=== PATIENT | male | born 1960 | race Hispanic/Latino ===

== ENCOUNTER 2018-11-15 13:57 | Emergency (ER) | payer OTHER ==
[2018-11-15] MEDS ORDERED: Lidocaine Viscous Sol 2% 15 ml UD Cup ONE (14:06)
[2018-11-15] MEDS ORDERED: Famotidine 20 MG TAB ONE (14:06)
[2018-11-15] MEDS ORDERED: Mag-Al Plus 1200 MG/1200 MG/120 MG/30 ML UDCUP ONE (14:06)
[2018-11-15 14:20] LABS: #Basophils 0.1 thou/uL (0.0-0.2); #Eosinphils 0.1 thou/uL (0.0-0.7); #Lymphocytes 2.7 thou/uL (1.20-3.40); #Monocytes 0.5 thou/uL (0.11-0.59); #Neutrophils 4.1 thou/uL (1.40-6.50); %Basophils 0.8 % (0.0-1.0); %Eosinophils 1.7 % (0.0-10.0); %Lymphocytes 35.4 % (21.0-51.0); %Monocytes 7.1 % (0.0-10.0); Hemoglobin 14.4 g/dL (14.0-18.0); Mean Corpuscular HGB CONC 33.4 g/dL (32.0-36.0); Mean Corpuscular Hemoglobin 30.5 pg (27.0-31.0); Mean Corpuscular Volume 91.3 fL (78.0-98.0); Mean Platelet Volume 6.1 fL (7.4-10.4); Platelet Count 211 thou/uL (130-400); RBC Distribution Width 12.5 % (11.5-14.5); Red Blood Cell (RBC) Count 4.72 mill/uL (4.70-6.10); White Blood Cell (WBC) Count 7.5 thou/uL (4.8-10.8)
[2018-11-15 14:39] LABS: ALT (SGPT) 21 U/L (8-55); AST (SGOT) 14 U/L (5-34); Albumin 4.1 g/dL (3.5-5.0); Alkaline Phosphatase 101 U/L (40-150); Anion Gap 15 mmol/L (10-20); BUN (Urea Nitrogen) 14 mg/dL (8.4-25.7); Bilirubin, Total 0.5 mg/dL (0.2-1.2); Calc. Creatinine Clearance 0 mL/min (70-130); Carbon Dioxide 25 mmol/L (22-29); Chloride 102 mmol/L (98-107); Estimated GFR-MDRD 82; Globulin 3.2 g/dL (2.4-3.5); Glucose 248 mg/dL (70-105); Lipase 27 U/L (8-78); Potassium 3.8 mmol/L (3.5-5.1); Protein, Total 7.3 g/dL (6.0-8.3); Sodium 138 mmol/L (136-145)
--- NOTE | 2018-11-15 15:05 | RAD ---
2 VIEWS CHEST: Date: 11/15/18 PROVIDED CLINICAL HISTORY: Chest pain. FINDINGS: Cardiac and mediastinal silhouette is within normal limits. Lungs appear clear. No pleural fluid or p neumothorax apparent. IMPRESSION: No evidence for an acute cardiopulmonary process. POS: [facility]
== END 2018-11-15 14:55 | disposition home or self-care (01) ==
LOC: SCSER 13:57
DX: K21.9 Gastro-esophageal reflux disease without esophagitis (principal)
CPT/HCPCS: 36415; 71046; 80053; 83690; 84484; 85025; 93005

== ENCOUNTER 2018-11-22 00:48 | Inpatient (IN) | payer OTHER ==
[2018-11-22] MEDS ORDERED: Lidocaine Viscous Sol 2% 15 ml UD Cup ONE (01:07)
[2018-11-22] MEDS ORDERED: Mag-Al Plus 1200 MG/1200 MG/120 MG/30 ML UDCUP ONE (01:07)
[2018-11-22] MEDS ORDERED: Aspirin Chewable 81 MG TAB ONE (01:07)
[2018-11-22 01:09] LABS: #Basophils 0.1 thou/uL (0.0-0.2); #Eosinphils 0.1 thou/uL (0.0-0.7); #Monocytes 0.4 thou/uL (0.11-0.59); #Neutrophils 3.9 thou/uL (1.40-6.50); %Basophils 1.4 % (0.0-1.0); %Eosinophils 1.7 % (0.0-10.0); %Monocytes 5.8 % (0.0-10.0); %Neutrophils 52.1 % (42.0-75.0); Hemoglobin 14.2 g/dL (14.0-18.0); Mean Corpuscular HGB CONC 32.7 g/dL (32.0-36.0); Mean Corpuscular Volume 91.8 fL (78.0-98.0); Mean Platelet Volume 6.7 fL (7.4-10.4); Platelet Count 216 thou/uL (130-400); RBC Distribution Width 12.6 % (11.5-14.5); Red Blood Cell (RBC) Count 4.73 mill/uL (4.70-6.10); White Blood Cell (WBC) Count 7.6 thou/uL (4.8-10.8)
[2018-11-22 01:24] LABS: ALT (SGPT) 20 U/L (8-55); AST (SGOT) 20 U/L (5-34); Albumin 4.5 g/dL (3.5-5.0); Alkaline Phosphatase 116 U/L (40-150); Anion Gap 15 mmol/L (10-20); BUN (Urea Nitrogen) 15 mg/dL (8.4-25.7); Bilirubin, Total 0.5 mg/dL (0.2-1.2); Calc. Creatinine Clearance 0 mL/min (70-130); Calcium 9.5 mg/dL (7.8-10.44); Carbon Dioxide 25 mmol/L (22-29); Chloride 103 mmol/L (98-107); Estimated GFR-MDRD 90; Globulin 3.5 g/dL (2.4-3.5); Glucose 131 mg/dL (70-105); Lipase 96 U/L (8-78); Potassium 3.9 mmol/L (3.5-5.1); Sodium 139 mmol/L (136-145)
[2018-11-22 01:26] LABS: CKMB 2.3 ng/mL (0-6.6)
[2018-11-22] MEDS ORDERED: Nitroglycerin 2% Ointment 1 INCH/1 GM Packet ONE (01:28)
[2018-11-22] MEDS ORDERED: Morphine 4 MG/ML VIAL ONE (01:45)
[2018-11-22] MEDS ORDERED: Enoxaparin Sodium 40 MG/0.4 ML SYRINGE ONE (01:52)
[2018-11-22] MEDS ORDERED: Enoxaparin Sodium 30 MG/0.3 ML SYRINGE ONE (01:52)
[2018-11-22] MEDS ORDERED: Sodium Chloride 0.9% 1,000 ML IV SCH (03:30)
[2018-11-22 04:33] VITALS: BMI 27.4
[2018-11-22 04:38] LABS: Troponin I 0.298 ng/mL (< 0.028)
[2018-11-22] MEDS ORDERED: Nitroglycerin 2% Ointment 1 INCH/1 GM Packet TOP SCH (06:00)
[2018-11-22 07:55] LABS: Troponin I 0.392 ng/mL (< 0.028)
[2018-11-22] MEDS ORDERED: hydrALAZINE 20 MG/ML VIAL SLOW IVP PRN (08:18)
[2018-11-22] MEDS ORDERED: Zolpidem Tartrate 5 MG TAB PO PRN (08:18)
[2018-11-22] MEDS ORDERED: Acetaminophen 325 MG TAB PO PRN (08:18)
[2018-11-22] MEDS ORDERED: Bisacodyl 10 MG SUPP PR PRN (08:18)
[2018-11-22] MEDS ORDERED: Nitroglycerin 0.4 MG TAB (25 Tab Bottle) SL PRN (08:18)
[2018-11-22] MEDS ORDERED: Sodium Chloride 0.65% Nasal 44 ML BOT EA NARE PRN (08:18)
[2018-11-22] MEDS ORDERED: Artificial Tears 18 DROP/0.9 ML EA EYE PRN (08:18)
[2018-11-22] MEDS ORDERED: Diabetic Tussin 200 MG/10 ML UDCUP PO PRN (08:18)
[2018-11-22] MEDS ORDERED: Ondansetron PF 4 MG/2 ML Vial IVP PRN (08:18)
[2018-11-22] MEDS ORDERED: Senokot S 8.6-50 MG TAB PO PRN (08:18)
[2018-11-22] MEDS ORDERED: HYDROcodone/Acetaminophen 5/325 mg Tablet PO PRN (08:18)
[2018-11-22] MEDS ORDERED: Loperamide HCl 2 MG CAP PO PRN (08:18)
[2018-11-22] MEDS ORDERED: Dextrose 50% Abboject 50 ML SYRINGE SLOW IVP PRN (08:18)
[2018-11-22] MEDS ORDERED: HumaLOG 300 UNITS/3 ML VIAL SC PRN (08:18)
[2018-11-22] MEDS ORDERED: Eucerin (Mineral Oil/Petrolatum,White) 30 gm Jar TOP PRN (08:18)
[2018-11-22] MEDS ORDERED: Dextrose 5% in Water 1,000 ML IV PRN (08:18)
[2018-11-22] MEDS ORDERED: Cepastat Lozenges 1 LOZ PO PRN (08:18)
[2018-11-22] MEDS ORDERED: Loratadine 10 MG TAB PO PRN (08:18)
[2018-11-22] MEDS ORDERED: Calcium Carbonate 500 MG ChewTAB PO PRN (08:18)
[2018-11-22] MEDS ORDERED: Ondansetron ODT 4 MG TAB PO PRN (08:18)
[2018-11-22] MEDS: Famotidine 20 MG TAB PO SCH ×2 (09:39→21:16)
[2018-11-22] MEDS: Metoprolol Tartrate 25 MG TAB PO SCH ×2 (09:39→21:16)
[2018-11-22] MEDS: Aspirin 325 MG TAB PO SCH (09:39)
[2018-11-22] MEDS: Enoxaparin Sodium 80 MG/0.8 ML SYRINGE SC SCH ×2 (09:40→21:15)
--- NOTE | 2018-11-22 09:54 | RAD ---
RADIOGRAPH CHEST 1 VIEW: HISTORY: A 57-year-old female with chest pain. FINDINGS: There are no air space densities, pulmonary edema, pneumothorax, or cardiomegaly. The lateral costop hrenic angles are sharp. IMPRESSION: No acute cardiopulmonary findings. jn [] POS: [facility]
[2018-11-22 11:48] LABS: Critical Call Chem Troponin I RESULT DECREASING
[2018-11-22 12:06] LABS: CKMB 1.9 ng/mL (0-6.6)
--- NOTE | 2018-11-22 12:11 | HP ---
PRIMARY CARE PHYSICIAN: Forrest Mitchell MD. REASON FOR ADMISSION: [id number] NC/unstable angina. HISTORY OF PRESENT ILLNESS: A 57-year-old male, who has underlying history of diabetes, type 2 and dyslipidemia, who initially went to [facility] for evaluation of chest pain. The patient reports that his chest pain started since last Friday. Whenever he was doing exertion, he was getting retrosternal chest pain lasting for about 10 minutes to 30 minutes. It was subsiding with the rest. This was ongoing intermittently for about a week, and it was keep getting worse. Yesterday, the patient returned from work, and he was having substernal chest pain, that was subsided with the rest, but again, pain was started last night around 11:30 p.m., which was substernal in location with radiation to arm, associated with feeling of weakness. He denies any nausea, vomiting, or diaphoresis. Pain lasted for about 45 minutes, and that is why, he went to [facility]. His drove him there. When he reached to the emergency room, his pain was almost subsided. Today, in the emergency room, the patient had electrocardiogram, which was not showing any acute ischemic changes. The patient had routine blood test, which showed elevated troponin. He was given Lovenox 1 mg/kg subcutaneously at [facility], and he was given IV fluid. Subsequently, he was transferred to our hospital for further evaluation and treatment. This morning, the patient was chest pain free. He denies any palpitation, syncope, or dizziness. He denies any orthopnea, PND, or leg swelling, but his history is suggestive of crescendo angina. REVIEW OF SYSTEMS: CONSTITUTIONAL: Negative for weight loss or gain, ability to conduct usual activities. SKIN: Negative for rash, itching. EYES: Negative for double vision, pain. ENT/MOUTH: Negative for nose bleeding, neck stiffness, pain, tenderness. CARDIOVASCULAR: Negative for palpitations, dyspnea on exertion, orthopnea. RESPIRATORY: Negative for shortness of breath, wheezing, cough, hemoptysis, fever or night sweats. GASTROINTESTINAL: Negative for poor appetite, abdominal pain, heartburn, nausea , vomiting, constipation, or diarrhea. GENITOURINARY: Negative for urgency, frequency, dysuria, nocturia. MUSCULOSKELETAL: Negative for pain, swelling. NEUROLOGIC/PSYCHIATRIC: Negative for anxiety, depression. ALLERGY/IMMUNOLOGIC: Negative for skin rash, bleeding tendency. See my HPI for pertinent positives and negatives. All other review of systems reviewed and negative except as mentioned in the HPI. PAST MEDICAL HISTORY: Gastroesophageal reflux disease; diabetes, type 2; and dyslipidemia. PAST SURGICAL HISTORY: Reviewed and negative. PAST PSYCHIATRIC HISTORY: Reviewed and negative. SOCIAL HISTORY: The patient is . He denies any tobacco, alcohol, or illicit drug abuse. FAMILY HISTORY: The patient denies any strong family history of premature coronary artery disease, stroke, or cancer. ALLERGIES: NO KNOWN DRUG ALLERGY. EMERGENCY ROOM COURSE: The patient is given Lovenox 1 mg/kg, IV fluid. CURRENT HOME MEDICATIONS: 1. Glipizide 10 mg p.o. every other day. 2. Maalox p.r.n. 3. Lipitor 80 mg p.o. at bedtime. 4. Pepcid 20 mg daily. 5. Metformin 1000 mg p.o. b.i.d. 6. Omeprazole 20 mg p.o. daily. PHYSICAL EXAMINATION: VITAL SIGNS: On arrival, blood pressure 135/91, pulse 99, respiratory rate 17, temperature 98.7, saturation 95% on room air. Weight 70.7 kg. GENERAL: The patient is currently alert and awake, no obvious acute distress. HEENT: Head; normocephalic and atraumatic. Eyes; pupils are round and reactive to light. Extraocular muscle intact. ENT; oropharynx within normal limits. Moist mucous membrane. No oral lesion. No pharyngeal erythema. No exudate. NECK: Supple. No thyromegaly. No carotid bruit. No jugular venous distention. LUNGS: Clear to auscultation without any rhonchi or rales. CARDIAC: S1 and S2, regular without any murmur. ABDOMEN: Soft. Bowel sounds present. Nontender. Nondistended. No organomegaly. No mass. No suprapubic tenderness. BACK: Unremarkable. No CVA tenderness. EXTREMITIES: Upper extremities; passive movement of all joints is normal. Lower extremities; no edema. Good distal pulsation. No calf tenderness. SKIN: No skin rash. HEMATOLOGICAL: No lymphadenopathy. NEUROLOGIC: Nonfocal examination. The patient moves all four limbs. SIGNIFICANT LABORATORY DATA: EKG is showing normal sinus rhythm without any acute ischemic changes. Chest x-ray based on my review, no acute cardiopulmonary process. CBC; WBC 7.6, hemoglobin 14.2, platelet 216. BMP; sodium 139, potassium 3.9, chloride 103, carbon dioxide 25, BUN 15, creatinine 0.88, glucose 131, calcium 9.5. LFT; AST 20, ALT 20, alkaline phosphatase 116, albumin 4.5. troponin then 0.298, then 0.392. ASSESSMENT AND PLAN: 1. Dps-XQ-yxskavyxa myocardial infarction/unstable angina. This patient's clinical history is consistent with unstable angina, and he has significantly elevated troponin. His EKG is normal. All consistent with itm-MJ-nhbqdvluk myocardial infarction. The patient will be treated medically at this point with nitroglycerin patch q.8 hourly, aspirin 325 mg p.o. daily, Lipitor 80 mg p.o. at bedtime, Lovenox 1 mg/kg subcutaneously twice daily, metoprolol 12.5 mg twice daily, and nitroglycerin p.r.n. basis, and Cardiology will be consulted. Echocardiography will be obtained. We will check lipid profile for risk stratification tomorrow. 2. Diabetes, type 2. We will hold on glipizide and metformin therapy at this point because the patient most likely will need cardiac catheterization. We will continue with insulin as per sliding scale protocol. Diabetic diet will be given. 3. Dyslipidemia. Continue Lipitor 80 mg p.o. at bedtime and check lipid profile tomorrow. 4. Gastroesophageal reflux disease. We will continue Pepcid 20 mg p.o. b.i.d. 5. Deep venous thrombosis prophylaxis. The patient is already on full dose of Lovenox therapy. 6. Gastrointestinal prophylaxis. Pepcid 20 mg p.o. b.i.d. CODE STATUS: The patient is full code. DISPOSITION PLAN: Based on clinical course. We will keep him n.p.o. after midnight because the patient most likely will need cardiac catheterization tomorrow. Plan of care discussed with the patient and his at bedside. Job ID: [id number] SHANA
[2018-11-22] MEDS: Nitroglycerin 2% Ointment 1 INCH/1 GM Packet TOP SCH ×2 (14:49→21:22)
[2018-11-22] MEDS ORDERED: Communication Order-Pharmacy FS SCH (17:30)
--- NOTE | 2018-11-22 18:17 | CON ---
DATE OF CONSULTATION: 11/22/2018 REASON FOR CONSULTATION: Non-STEMI. HISTORY OF PRESENT ILLNESS: Mr. Fischer is a pleasant 57-year-old gentleman, who comes to the hospital for chest pain. He has been having it for the last week. He decided to come in just today as the pain got much worse than before. It lasted about 30 minutes, whereas before, it will only last about 10 minutes, this was only with exertion. He showed up. He is currently chest pain free and he was admitted as his troponins kept climbing. PAST MEDICAL HISTORY: 1. GERD. 2. Type 2 diabetes. 3. Hyperlipidemia. PAST SURGICAL HISTORY: None. SOCIAL HISTORY: No alcohol, tobacco, or drugs. FAMILY HISTORY: No early coronary artery disease. OUTPATIENT MEDICATIONS: 1. Glipizide. 2. Maalox. 3. Lipitor 80 at bedtime. 4. Pepcid. 5. Metformin 1000 mg b.i.d. 6. Omeprazole. ALLERGIES: NO KNOWN DRUG ALLERGIES. REVIEW OF SYSTEMS: A 12-point review of systems was done and was found to be negative unless stated in the history of present illness. PHYSICAL EXAMINATION: VITAL SIGNS: Temperature 97.4, pulse 83, respiratory rate 16, saturating 95% on room air, and blood pressure 95/58. GENERAL: Awake, alert, and oriented x3. No distress. HEENT: Normocephalic and atraumatic. NECK: Supple. LUNGS: Clear. CARDIOVASCULAR: S1 and S2. No S3 or S4. No murmurs. No rubs. ABDOMEN: Soft. Positive bowel sounds. EXTREMITIES: No edema. SKIN: Warm and dry. LABORATORY DATA: Laboratory work was reviewed. White count of 7.6, hemoglobin of 14, hematocrit of 43, platelet count of 216. Chemistries are unremarkable except for glucose of 131. Troponin was 0.29, 0.39, and 0.32 with a CK-MB of 1.9. Lipase was 96. Albumin was 4.5. EKG was reviewed, no ischemia. Chest x-ray was reviewed. ASSESSMENT AND PLAN: 1. Mpz-NY-bfgoiespv myocardial infarction. 2. Type 2 diabetes. PLAN: We spoke at length about the risks and benefits of the heart catheterization, which he needs and he agrees to proceed. Risks including, but not limited to stroke, IA, , bleeding, need for blood transfusion, limb loss, organ loss. The patient understands and verbalized understanding of this. He agrees to proceed. Conscious sedation was discussed as well. He agrees to this. Drug-eluting stents if needed. Further recommendations per results of heart catheterization. Job ID: [id number]
[2018-11-22] MEDS: HumaLOG 300 UNITS/3 ML VIAL SC PRN (18:33)
[2018-11-22] MEDS: Atorvastatin Calcium 40 MG TAB PO SCH (21:15)
[2018-11-22] MEDS: Sodium Chloride 0.9% 1,000 ML IV SCH (23:54)
[2018-11-23] MEDS: Metoprolol Tartrate 25 MG TAB PO SCH ×2 (05:34→20:24)
[2018-11-23] MEDS: Nitroglycerin 2% Ointment 1 INCH/1 GM Packet TOP SCH ×3 (05:41→22:30)
[2018-11-23 06:09] LABS: #Eosinphils 0.1 thou/uL (0.0-0.7); #Lymphocytes 3.3 thou/uL (1.20-3.40); #Monocytes 0.5 thou/uL (0.11-0.59); #Neutrophils 3.2 thou/uL (1.40-6.50); %Basophils 0.3 % (0.0-1.0); %Eosinophils 1.8 % (0.0-10.0); %Lymphocytes 46.3 % (21.0-51.0); %Monocytes 6.9 % (0.0-10.0); %Neutrophils 44.8 % (42.0-75.0); Mean Corpuscular HGB CONC 34.3 g/dL (32.0-36.0); Mean Corpuscular Hemoglobin 32.2 pg (27.0-31.0); Mean Corpuscular Volume 93.8 fL (78.0-98.0); Mean Platelet Volume 7.2 fL (7.4-10.4); Platelet Count 245 thou/uL (130-400); RBC Distribution Width 11.9 % (11.5-14.5); Red Blood Cell (RBC) Count 4.37 mill/uL (4.70-6.10); White Blood Cell (WBC) Count 7.1 thou/uL (4.8-10.8)
[2018-11-23 06:32] LABS: Anion Gap 12 mmol/L (10-20); BUN (Urea Nitrogen) 13 mg/dL (8.4-25.7); Calc. Creatinine Clearance 89 mL/min (70-130); Calcium 9.4 mg/dL (7.8-10.44); Carbon Dioxide 25 mmol/L (22-29); Cardiac Risk 4.3 (Less than 4.5); Chloride 107 mmol/L (98-107); Cholesterol 167 mg/dl (< 200 Desired); Estimated GFR-MDRD 82; Glucose 129 mg/dL (70-105); HDL Cholesterol 39 mg/dL (>60 Neg Risk); LDL Cholesterol, Calculated 97 mg/dL; Potassium 3.6 mmol/L (3.5-5.1); Sodium 140 mmol/L (136-145); Triglycerides 153 mg/dL (Less than 150)
[2018-11-23] MEDS ORDERED: Iopamidol 370 76% 100 ML VIAL ONE (09:20)
[2018-11-23] MEDS: Famotidine 20 MG TAB PO SCH ×2 (09:53→20:24)
[2018-11-23] MEDS: Aspirin 325 MG TAB PO SCH (09:53)
--- NOTE | 2018-11-23 11:12 | PDOC.PN ---
- Subjective Encounter Start Date: 11/23/18 Encounter Start Time: 07:30 -: old records requested/rev Patient seen and examined. No new complaints. No overnight events - Objective Resuscitation Status - Order Detail: 11/22/18 08:14 Resuscitation Status Routine Resuscitation Status: FULL: Full Resuscitation MAR Reviewed: Yes Vital Signs & Weight: Vital Signs (12 hours) Temp Pulse Resp BP Pulse Ox 11/23/18 07:42 97.6 F 78 16 110/67 98 11/23/18 03:28 98.4 F 93 16 107/67 94 L 11/22/18 23:53 98.5 F 92 18 99/60 94 L Weight Weight 160 lb I&O: 11/22/18 11/23/18 11/24/18 06:59 06:59 06:59 Intake Total 1280 Balance 1280 Result Diagrams: 11/23/18 05:23 11/23/18 05:23 Additional Labs: Accuchecks 11/23/18 11/22/18 11/22/18 05:42 20:31 17:14 POC Glucose 138 H 107 220 H 11/22/18 10:45 POC Glucose 147 H EKG Reviewed by me: Yes (nsr) Phys Exam - Physical Examination Constitutional: NAD HEENT: PERRLA, moist MMs, sclera anicteric Neck: no JVD, supple Respiratory: no wheezing, no rales, no rhonchi Cardiovascular: RRR, no significant murmur, no rub Gastrointestinal: soft, non-tender, no distention, positive bowel sounds Musculoskeletal: no edema, pulses present Neurological: non-focal, normal sensation, moves all 4 limbs Lymphatic: no nodes Psychiatric: normal affect, A&O x 3 Skin: no rash, normal turgor Dx/Plan (1) NSTEMI (non-ST elevated myocardial infarction) Code(s): I21.4 - NON-ST ELEVATION (NSTEMI) MYOCARDIAL INFARCTION Status: Acute (2) Diabetes type 2, controlled Code(s): E11.9 - TYPE 2 DIABETES MELLITUS WITHOUT COMPLICATIONS Status: Chronic (3) Dyslipidemia Code(s): E78.5 - HYPERLIPIDEMIA, UNSPECIFIED Status: Chronic (4) GERD (gastroesophageal reflux disease) Code(s): K21.9 - GASTRO-ESOPHAGEAL REFLUX DISEASE WITHOUT ESOPHAGITIS Status: Chronic - Plan cont current plan of care, plan discussed w/ family * medication reviewed as below * symptomatic treatment * discussed with * currently on medical therapy * today cardiac cath. Review of Systems - Review of Systems ENT: negative: Ear Pain, Ear Discharge, Nose Pain, Nose Discharge, Nose Congestion, Mouth Pain, Mouth Swelling, Throat Pain, Throat Swelling, Other Respiratory: negative: Cough, Dry, Shortness of Breath, Hemoptysis, SOB with Excertion, Pleuritic Pain, Sputum, Wheezing Cardiovascular: negative: chest pain, palpitations, orthopnea, paroxysmal nocturnal dyspnea, edema, light headedness, other Gastrointestinal: negative: Nausea, Vomiting, Abdominal Pain, Diarrhea, Constipation, Melena, Hematochezia, Other Genitourinary: negative: Dysuria, Frequency, Incontinence, Hematuria, Retention , Other Musculoskeletal: negative: Neck Pain, Shoulder Pain, Arm Pain, Back Pain, Hand Pain, Leg Pain, Foot Pain, Other Skin: negative: Rash, Lesions, Sanjay, Bruising, Other - Medications/Allergies Allergies/Adverse Reactions: Allergies Allergy/AdvReac Type Severity Reaction Status Date / Time No Known Allergies Allergy Verified 11/22/18 03:25 Medications: Current Medications Acetaminophen (Tylenol) 650 mg PO Q4H PRN PRN Reason: Headache/Fever/Mild Pain (1-3) Hydrocodone Bitart/Acetaminophen ([place] 5/325) 1 tab PO Q4H PRN PRN Reason: Moderate Pain (4-6) Artificial Tears (Tears Naturale) 2 drop EA EYE PRN PRN PRN Reason: Dry Eyes Aspirin (Aspirin) 325 mg PO DAILY [facility] Last Admin: 11/23/18 09:53 Dose: 325 mg Atorvastatin Calcium (Lipitor) 80 mg PO HS [facility] Last Admin: 11/22/18 21:15 Dose: 80 mg Bisacodyl (Dulcolax) 10 mg OK DAILYPRN PRN PRN Reason: Constipation Calcium Carbonate (Tums) 1,000 mg PO Q4H PRN PRN Reason: Heartburn or Indigestion Dextrose/Water (Dextrose 50%) 25 gm SLOW IVP PRN PRN PRN Reason: Hypoglycemia Famotidine (Pepcid) 20 mg PO BID [facility] Last Admin: 11/23/18 09:53 Dose: 20 mg Glucagon (Glucagon) 1 mg IM PRN PRN PRN Reason: Hypoglycemia Guaifenesin (Robitussin Sf) 200 mg PO Q4H PRN PRN Reason: Cough Hydralazine HCl (Apresoline) 10 mg SLOW IVP Q4H PRN PRN Reason: SBP > 180 and HR < 70 Dextrose/Water (D5w) 1,000 mls @ 0 mls/hr IV .Q0M PRN PRN Reason: Hypoglycemia Sodium Chloride (Normal Saline 0.9%) 1,000 mls @ 75 mls/hr IV .[id number] [facility] Last Admin: 11/22/18 23:54 Dose: 1,000 mls Insulin Human Lispro (Humalog) 0 units SC .MODERATE SLIDING SC PRN PRN Reason: Moderate Correctional Scale Last Admin: 11/22/18 18:33 Dose: 4 unit Insulin Human Lispro (Humalog) 0 units SC .BEDTIME SLIDING SC PRN PRN Reason: Bedtime Correctional Scale Loperamide HCl (Imodium) 2 mg PO PRN PRN PRN Reason: Diarrhea/Loose Stools Loratadine (Claritin) 10 mg PO DAILYPRN PRN PRN Reason: Sinus Symptoms Metoprolol Tartrate (Lopressor) 12.5 mg PO BID [facility] Last Admin: 11/23/18 05:34 Dose: 12.5 mg Mineral Oil/White Petrolatum (Eucerin Cream) 0 gm TOP BIDPRN PRN PRN Reason: Dry Skin Miscellaneous Information (Communication Order-Pharmacy) 0 each FS ONE [facility] Stop: 11/23/18 17:31 Nitroglycerin (Nitro-Bid 2% Ointment) 0.5 inch TOP Q8HR [facility] Last Admin: 11/23/18 05:41 Dose: Not Given Nitroglycerin (Nitrostat) 0.4 mg SL Q5MIN PRN PRN Reason: Chest Pain Ondansetron HCl (Zofran Odt) 4 mg PO Q6H PRN PRN Reason: Nausea/Vomiting Ondansetron HCl (Zofran) 4 mg IVP Q6H PRN PRN Reason: Nausea/Vomiting Senna/Docusate Sodium (Senokot S) 2 tab PO BID PRN PRN Reason: Constipation Sodium Chloride ([place] Nasal [place] 0.65%) 0 ml EA NARE QIDPRN PRN PRN Reason: Nasal Congestion Throat Lozenges (Cepastat Lozenges) 1 kasey PO Q2H PRN PRN Reason: Sore Throat Zolpidem Tartrate (Ambien) 5 mg PO HSPRN PRN PRN Reason: Insomnia
[2018-11-23] MEDS ORDERED: Midazolam HCl 2 mg/2 ml Vial ONE (11:47)
[2018-11-23] MEDS ORDERED: Fentanyl 100 MCG/2 ML VIAL ONE (11:48)
[2018-11-23] MEDS ORDERED: TICAGRELOR 90 MG TABLET ONE ×2 (12:05)
[2018-11-23] MEDS ORDERED: Heparin 10,000 UNITS/1 ML VIAL ONE (12:05)
[2018-11-23] MEDS ORDERED: Morphine 4 MG/ML VIAL SLOW IVP PRN (12:44)
[2018-11-23] MEDS ORDERED: Sodium Chloride 0.9% 1,000 ML IV SCH (12:45)
[2018-11-23] MEDS: Sodium Chloride 0.9% 1,000 ML IV SCH ×2 (15:26→20:23)
[2018-11-23] MEDS: HumaLOG 300 UNITS/3 ML VIAL SC PRN (19:16)
--- NOTE | 2018-11-23 20:23 | EKG ---
Test Reason : POST STENT Blood Pressure : / mmHG Vent. Rate : 080 BPM Atrial Rate : 080 BPM P-R Int : 166 ms QRS Dur : 078 ms QT Int : 400 ms P-R-T Axes : 052 046 087 degrees QTc Int : 461 ms Normal sinus rhythm Nonspecific T wave abnormality Prolonged QT Abnormal ECG When compared with ECG of 15-NOV-2018 13:58, Non-specific change in ST segment in Lateral leads Nonspecific T wave abnormality no longer evident in Inferior leads T wave inversion now evident in Anterior leads Confirmed by TASIA MEI, . SDamian (4) on 11/23/2018 8:23:20 PM Referred By: MANUEL Confirmed By:DR. Randal DOZIER MD
[2018-11-23] MEDS: TICAGRELOR 90 MG TABLET PO SCH (20:24)
[2018-11-23] MEDS: Atorvastatin Calcium 40 MG TAB PO SCH (20:24)
[2018-11-24] MEDS: Sodium Chloride 0.9% 1,000 ML IV SCH (03:30)
[2018-11-24] MEDS: Nitroglycerin 2% Ointment 1 INCH/1 GM Packet TOP SCH (04:33)
[2018-11-24 06:31] LABS: #Eosinphils 0.1 thou/uL (0.0-0.7); #Lymphocytes 1.6 thou/uL (1.20-3.40); #Monocytes 0.5 thou/uL (0.11-0.59); #Neutrophils 2.9 thou/uL (1.40-6.50); %Basophils 0.5 % (0.0-1.0); %Eosinophils 1.7 % (0.0-10.0); %Lymphocytes 31.7 % (21.0-51.0); %Monocytes 9.4 % (0.0-10.0); %Neutrophils 56.8 % (42.0-75.0); Hemoglobin 12.7 g/dL (14.0-18.0); Mean Corpuscular HGB CONC 33.4 g/dL (32.0-36.0); Mean Corpuscular Hemoglobin 31.2 pg (27.0-31.0); Mean Corpuscular Volume 93.6 fL (78.0-98.0); Mean Platelet Volume 6.9 fL (7.4-10.4); Platelet Count 216 thou/uL (130-400); RBC Distribution Width 11.9 % (11.5-14.5); Red Blood Cell (RBC) Count 4.08 mill/uL (4.70-6.10)
[2018-11-24 06:48] LABS: ALT (SGPT) 14 U/L (8-55); AST (SGOT) 15 U/L (5-34); Albumin 3.6 g/dL (3.5-5.0); Alkaline Phosphatase 114 U/L (40-150); Anion Gap 9 mmol/L (10-20); BUN (Urea Nitrogen) 11 mg/dL (8.4-25.7); Bilirubin, Total 0.7 mg/dL (0.2-1.2); Calc. Creatinine Clearance 96 mL/min (70-130); Calcium 8.6 mg/dL (7.8-10.44); Carbon Dioxide 23 mmol/L (22-29); Chloride 111 mmol/L (98-107); Estimated GFR-MDRD Greater than 90; Globulin 2.9 g/dL (2.4-3.5); Glucose 107 mg/dL (70-105); Potassium 3.7 mmol/L (3.5-5.1); Protein, Total 6.5 g/dL (6.0-8.3); Sodium 139 mmol/L (136-145)
[2018-11-24] MEDS ORDERED: Metoprolol Tartrate 25 MG TAB PO SCH (07:39)
[2018-11-24 07:57] VITALS: TEMP 97.8
[2018-11-24] MEDS ORDERED: Aspirin Chewable 81 MG TAB PO SCH (09:00)
[2018-11-24] MEDS ORDERED: Lisinopril 2.5 MG TAB PO SCH (09:00)
[2018-11-24] MEDS: Famotidine 20 MG TAB PO SCH (09:17)
[2018-11-24] MEDS: TICAGRELOR 90 MG TABLET PO SCH (09:20)
--- NOTE | 2018-11-24 11:16 | DIS ---
DATE OF ADMISSION: 11/22/2018 DATE OF DISCHARGE: 11/24/2018 PRIMARY CARE PHYSICIAN: Forrest Mitchell MD DISCHARGE DISPOSITION: Home. PRIMARY DISCHARGE DIAGNOSES: 1. Hgo-AT-iqlrpgmap myocardial infarction. 2. Status post coronary artery stent placement in the left anterior descending artery. SECONDARY DISCHARGE DIAGNOSES: Diabetes type 2, dyslipidemia, gastroesophageal reflux disease. PRIMARY PROCEDURE/OPERATION: Cardiac catheterization with stent placement was done by Dr. Nguyen. RADIOLOGICAL INVESTIGATION: Chest x-ray normal. Echocardiography showed diastolic dysfunction. SIGNIFICANT LABORATORY DATA: WBC 5.0, hemoglobin 12.7, platelets 216. Sodium 139, potassium 3.7, BUN 11, creatinine 0.85. LFT normal. LDL 97. DISCHARGE MEDICATIONS: 1. Aspirin 81 mg p.o. daily. 2. Brilinta 90 mg p.o. b.i.d. 3. Lopressor 25 mg p.o. b.i.d. 4. Lisinopril 2.5 mg daily. 5. Omeprazole 20 mg daily. 6. Metformin 1000 mg p.o. b.i.d. 7. Pepcid 20 mg daily. 8. Lipitor 40 mg p.o. at bedtime. 9. Glipizide 5 mg every other day. CONTRAINDICATION: None. CODE STATUS: Full code. INPATIENT DIRECTOR OF MEDIA: Dr. Nguyen was consulted while in hospital. TEST RESULT PENDING ON DISCHARGE: None. ALLERGIES: NO KNOWN DRUG ALLERGY. DISCHARGE PLAN: Posthospital, the patient will follow up with primary care physician on November 30, 2018 at 11:30 a.m. The patient will follow up with Dr. Nguyen as instructed. HOSPITAL COURSE: A 58-year-old male with above-mentioned medical problem, who was admitted by me. Please see my HPI for further details. The patient's presentation on admission was consistent with classic angina and it was gradually getting worse. He also had elevated troponin. In this way, he was having zil-[id number] PA. The patient was admitted to telemetry floor. We treated him medically with aspirin, Lovenox, statin therapy, beta-maci, and KELSY inhibitor. Cardiology was consulted. Cardiology did cardiac cath, and the patient was found with a mid-LAD lesion, which was stented with drug-eluting stent. Echocardiography showed diastolic dysfunction with hypokinesia. Overall, this patient is doing much better after cardiac catheterization and Cardiology cleared him for discharge. Above-mentioned medication started on discharge. The patient is seen and examined at bedside this study. The patient is seen and examined at bedside today. All review of systems was reviewed with him and negative. His physical examination is normal. His vital signs are normal. All new medication prescription sent to his pharmacy. Job ID: [id number]
[2018-11-24 12:03] VITALS: BP 119/74
--- NOTE | 2018-11-24 13:10 | PQF ---
[employer] Crystal Reports Winform KelsieLALI DICKERSON АЛЕКСАНДР JUSTIN, THOMAS HERNÁNDEZ MD [phone] [facility] [place]-218 [phone] CLINICAL DOCUMENTATION IMPROVEMENT CLARIFICATION FORM: ICD-10 Updated PLEASE DO AN ADDENDUM TO THE PROGRESS NOTE WITH ANY DOCUMENTATION UPDATES OR ADDITIONS AND CARRY THROUGH TO DC SUMMARY. THANK YOU. DATE: 11/24/2018 ATTN: DR. JUSTIN Please exercise your independent, professional judgment in responding to the clarification form. Clinical indicators are provided on the bottom of this form for your review Please check appropriate box(s): HEART FAILURE A. TYPE: [ ] Systolic / HFrEF [ ] Diastolic / HFpEF [ ] Combined Systolic / Diastolic B. ACUITY: [ ] Acute [ ] Acute on Chronic [ ] Chronic [ ] Other diagnosis __see discharge summery [ ] Unable to determine In addition, please specify: Present on Admission (POA): [ ] Yes [ x] No [ ] Unable to determine For continuity of documentation, please document condition throughout progress notes and discharge summary. Thank You. CLINICAL INDICATORS - SIGNS / SYMPTOMS / LABS 11/22-Echo: Grade 2/3 diastolic dysfunction. Trace mitral regurg. Mild tricuspid regurg. Mild anterior and anterioseptal hypokinesis. Ejection Fraction =__50____ % 11/24-DC Summary: NSTEMI with Mid-LAD desion which was Stented with ANGELIA. Echo showed diastolic dysfunction with hypokinesia. RISKS History of CAD/ischemic heart disease DM2 Hyperlipidemia TREATMENTS Stent placement Cardiac monitoring / telemetry Thank you, Nicol (This form is maintained as a part of the permanent medical record) 2015 [employer]. All Rights Reserved Nicol Hale RN, CDIS [email or web address] [phone] [facility]
--- NOTE | 2018-11-24 18:21 | PDOC.CTH ---
Cardiology Progress Note - Subjective Late entry. Pt seen at 8:15am. He is doing well. No chest pain, tightness, pressure, SOB. He feels the discomfort and pressure he had been feeling for days is completely gone. - Objective Vital Signs Temp Pulse Resp BP BP Pulse Ox 11/24/18 12:03 97.8 F 93 20 119/74 96 11/24/18 09:18 78 103/65 11/24/18 08:00 97 11/24/18 07:55 97.8 F 78 16 101/62 97 11/24/18 07:54 97.8 F 78 16 101/62 97 Weight 155 lb 4.8 oz 11/23/18 11/24/18 11/25/18 06:59 06:59 06:59 Intake Total 1280 2990 Balance 1280 2990 - Physical Examination General/Neuro: alert & oriented x3, NAD Neck: no JVD present Lungs: CTA, unlabored respirations Heart: RRR Abdomen: NT/ND Extremities: other: (no edema) - Telemetry Telemetry Rhythm: NSR - Labs Result Diagrams: 11/24/18 06:03 11/24/18 06:03 Troponin/CKMB CK-MB (CK-2) 1.9 ng/mL (0-6.6) 11/22/18 10:47 Troponin I 0.327 ng/mL (< 0.028) H* 11/22/18 10:47 - Assessment/Plan 1. NSTEMI 2. S/P PCI to LAD with ANGELIA. 3. CAD 4. T2DM 5. HZTN PLAN - SHIVANI with Brilinta and aspirin 81 for 1 yr minimum. - Continue optimal medical therapy and risk factor modification. - May discharge home. - Follow up in 1 month in the office.
--- NOTE | 2018-11-24 21:34 | EKG ---
Test Reason : Blood Pressure : / mmHG Vent. Rate : 076 BPM Atrial Rate : 076 BPM P-R Int : 168 ms QRS Dur : 080 ms QT Int : 406 ms P-R-T Axes : 021 058 075 degrees QTc Int : 456 ms Normal sinus rhythm Nonspecific T wave abnormality Abnormal ECG When compared with ECG of 23-NOV-2018 13:44, No significant change was found Confirmed by TASIA MEI, SDamian (4) on 11/24/2018 9:34:03 PM Referred By: MANUEL Confirmed By:DR. Randal DOZIER MD
== END 2018-11-24 12:03 | disposition home or self-care (01) | DRG 247 ==
LOC: SCSER 00:48 → 2SE 02:24
PROVIDERS: ADMIT Internal Medicine; ATTEND Internal Medicine
PROC: 027034Z Dilation of Coronary Artery, One Artery with Drug-eluting Intraluminal Device, Percutaneous Approach (ICD-10-PCS; principal; 2018-11-23)
PROC: 4A023N7 Measurement of Cardiac Sampling and Pressure, Left Heart, Percutaneous Approach (ICD-10-PCS; 2018-11-23)
PROC: B2111ZZ Fluoroscopy of Multiple Coronary Arteries using Low Osmolar Contrast (ICD-10-PCS; 2018-11-23)
PROC: B2151ZZ Fluoroscopy of Left Heart using Low Osmolar Contrast (ICD-10-PCS; 2018-11-23)
DX: I21.4 Non-ST elevation (NSTEMI) myocardial infarction (principal); E11.9 Type 2 diabetes mellitus without complications; E78.5 Hyperlipidemia, unspecified; I25.110 Atherosclerotic heart disease of native coronary artery with unstable angina pectoris; K21.9 Gastro-esophageal reflux disease without esophagitis; Z79.899 Other long term (current) drug therapy; Z79.84 Long term (current) use of oral hypoglycemic drugs
CPT/HCPCS: 36415; 36416; 71045; 80048; 80053; 80061; 82553; 83690; 84484; 85025; 85347; 92928; 93005; 93010; 93306; 93458; 94760; 96361; 96372; 96374; 99152; 99153; C1760; C1769; C1874; C9600; J1644; J1650; J2250; J2270; J3010; Q9967

== ENCOUNTER 2024-05-21 08:24 | Observation (INO) | payer BC ==
[2024-05-21] MEDS ORDERED: Acetaminophen 500 MG TAB ONE (09:31)
[2024-05-21 09:33] LABS: #Basophils 0.03 10x3/uL (0.0-0.2); %Basophils 0.4 % (0.0-1.0); %Eosinophils 1.2 % (0.0-10.0); %Lymphocytes 25.8 % (21.0-51.0); %Monocytes 9.1 % (0.0-10.0); %Neutrophils 63.2 % (42.0-75.0); Hematocrit 41.9 % (42.0-52.0); Hemoglobin 14.5 g/dL (14.0-18.0); Mean Corpuscular HGB CONC 34.6 g/dL (32.0-36.0); Mean Corpuscular Hemoglobin 31.7 pg (27.0-31.0); Mean Corpuscular Volume 91.7 fL (78.0-98.0); Mean Platelet Volume 9.1 fL (7.4-10.4); Platelet Count 195 10x3/uL (130-400); RBC Distribution Width 12.9 % (11.5-14.5); Red Blood Cell (RBC) Count 4.57 mill/uL (4.70-6.10)
[2024-05-21 10:02] LABS: ALT (SGPT) 15 U/L (8-55); AST (SGOT) 16 U/L (5-34); Alkaline Phosphatase 138 U/L (40-110); Anion Gap 13 mmol/L (10-20); BUN (Urea Nitrogen) 18 mg/dL (8.4-25.7); Bilirubin, Total 0.8 mg/dL (0.2-1.2); Calc. Creatinine Clearance 0 mL/min (70-130); Calcium 9.3 mg/dL (7.8-10.44); Carbon Dioxide 26 mmol/L (23-31); Chloride 101 mmol/L (98-107); Estimated GFR 77; Globulin 3.6 g/dL (2.4-3.5); Glucose 188 mg/dL (80-115); Potassium 3.7 mmol/L (3.5-5.1); Protein, Total 7.6 g/dL (5.8-8.1); Sodium 136 mmol/L (136-145)
[2024-05-21 10:05] LABS: Troponin I Less than 0.010 ng/mL (< 0.028)
[2024-05-21] MEDS ORDERED: Acetaminophen 325 MG TAB PO PRN (11:30)
[2024-05-21] MEDS ORDERED: Ondansetron ODT 4 MG TAB SL PRN (11:30)
[2024-05-21] MEDS ORDERED: Ondansetron PF 4 MG/2 ML Vial IVP PRN (11:30)
[2024-05-21] MEDS ORDERED: Nitroglycerin 0.4 MG TAB (25 Tab Bottle) SL PRN (12:04)
[2024-05-21 12:25] LABS: Troponin I Less than 0.010 ng/mL (< 0.028)
[2024-05-21 13:21] VITALS: BMI 24.0
[2024-05-21] MEDS: Enoxaparin 40 MG (0.4 mL) SYRINGE SC SCH (13:23)
[2024-05-21 15:53] LABS: Troponin I Less than 0.010 ng/mL (< 0.028)
[2024-05-21] MEDS: Ketorolac Tromethamine 30 MG (1 mL) VIAL IVP SCH (16:35)
[2024-05-21] MEDS ORDERED: Morphine 4 MG/ML VIAL SLOW IVP PRN (20:11)
[2024-05-21] MEDS ORDERED: Dextrose 5% in Water 1,000 ML IV PRN (20:14)
[2024-05-21] MEDS ORDERED: Dextrose 50% Abboject 50 ML SYRINGE SLOW IVP PRN (20:14)
[2024-05-21] MEDS ORDERED: Insulin Lispro 100 UNIT/ML 10 ML VIAL SC PRN (20:14)
[2024-05-21] MEDS ORDERED: Glucagon 1 MG/ML KIT IM PRN (20:14)
[2024-05-21] MEDS: Atorvastatin Calcium 40 MG TAB PO SCH (21:02)
[2024-05-21] MEDS: Icosapent Ethyl 1 GM CAPSULE PO SCH (21:02)
[2024-05-21] MEDS: TICAGRELOR 90 MG TABLET PO SCH (21:02)
[2024-05-21] MEDS: Metoprolol Tartrate 25 MG TAB PO SCH (21:05)
[2024-05-21] MEDS: Insulin Lispro 100 UNIT/ML 10 ML VIAL SC PRN (21:10)
[2024-05-22 04:34] LABS: #Basophils 0.03 10x3/uL (0.0-0.2); %Basophils 0.6 % (0.0-1.0); %Eosinophils 2.8 % (0.0-10.0); %Monocytes 8.8 % (0.0-10.0); %Neutrophils 54.6 % (42.0-75.0); Hematocrit 39.3 % (42.0-52.0); Hemoglobin 13.2 g/dL (14.0-18.0); Mean Corpuscular HGB CONC 33.6 g/dL (32.0-36.0); Mean Corpuscular Hemoglobin 31.5 pg (27.0-31.0); Mean Corpuscular Volume 93.8 fL (78.0-98.0); Mean Platelet Volume 9.2 fL (7.4-10.4); Platelet Count 192 10x3/uL (130-400); RBC Distribution Width 13.1 % (11.5-14.5); Red Blood Cell (RBC) Count 4.19 mill/uL (4.70-6.10)
[2024-05-22 05:09] LABS: Anion Gap 12 mmol/L (10-20); BUN (Urea Nitrogen) 21 mg/dL (8.4-25.7); Calc. Creatinine Clearance 77 mL/min (70-130); Calcium 8.6 mg/dL (7.8-10.44); Carbon Dioxide 21 mmol/L (23-31); Chloride 106 mmol/L (98-107); Estimated GFR 97; Glucose 126 mg/dL (80-115); Potassium 3.5 mmol/L (3.5-5.1); Sodium 135 mmol/L (136-145)
[2024-05-22 08:58] LABS: Hemoglobin A1c 13.9 % (4.0-6.0)
[2024-05-22] MEDS ORDERED: Regadenoson 0.4 MG/5 ML SYRINGE ONE (11:15)
[2024-05-22] MEDS: Aspirin 81 mg Enteric Coated Tablet PO SCH (11:43)
[2024-05-22] MEDS: Ezetimibe 10 MG TAB PO SCH (11:43)
[2024-05-22] MEDS: Pantoprazole DR 40 MG TAB PO SCH (11:44)
[2024-05-22] MEDS: Metoprolol Tartrate 25 MG TAB PO SCH (11:44)
[2024-05-22 12:35] VITALS: BP 118/70; TEMP 98
== END 2024-05-22 17:30 | disposition home or self-care (01) ==
LOC: ERS 08:24 → 2SW 12:56
PROVIDERS: ADMIT Internal Medicine; ATTEND Internal Medicine
PROC: B246ZZZ Ultrasonography of Right and Left Heart (ICD-10-PCS; principal; 2024-05-22)
DX: R07.89 Other chest pain (principal); I25.10 Atherosclerotic heart disease of native coronary artery without angina pectoris; E78.5 Hyperlipidemia, unspecified; I10 Essential (primary) hypertension; E11.9 Type 2 diabetes mellitus without complications; I11.0 Hypertensive heart disease with heart failure; I50.32 Chronic diastolic (congestive) heart failure; K21.9 Gastro-esophageal reflux disease without esophagitis; Z79.82 Long term (current) use of aspirin; Z98.61 Coronary angioplasty status; Z79.01 Long term (current) use of anticoagulants; Z79.84 Long term (current) use of oral hypoglycemic drugs; Z79.899 Other long term (current) drug therapy
CPT/HCPCS: 36415; 36416; 71045; 78452; 80048; 80053; 83036; 84484; 85025; 85379; 93005; 93017; 93306; 96374; A9502; G0378; J1815; J1885; J2785